=== PATIENT | female | born 1995 | race Caucasian/White ===

== ENCOUNTER 2017-02-10 22:26 | Emergency (ER) | payer OTHER ==
[2017-02-10 23:10] VITALS: O2SAT 98
--- NOTE | 2017-02-10 23:49 | ED PDOC ---
Arrival/HPI <Leopoldo Tellez - Last Filed: 02/11/17 00:15> - General Historian: Patient <Alyssia Em - Last Filed: 02/11/17 06:13> - General Chief Complaint: Abdominal Pain Time Seen by Provider: 02/10/17 23:24 - History of Present Illness Narrative History of Present Illness (Text): 02/10/17 23:44 Patient is a 21 year old with pmh of asthma and migraines presenting with lower abdominal pain. Patient states the abdominal pain started about 1-2 hrs prior to presenting. Patient states she was engaged in sexual activity, and during the act, she felt a sharp abdominal pain. Patient states prior to this she was already having abdominal pain, however the sex made it worst. patient states she has been having lower quadrant abdominal pain for about 3 months now , on/off, have not seen an obgyn, and it usually resolves spontaneously. However today the pain si worst. Even movement exacerbates the pain. Patient admits to burning when she urinates ( new today). Denies fever, chills, n/v/d. LMP was 2 weeks ago, no h/o STis, uses condoms, denies vaginal bleeding, denies odor, denies vaginal discharge. Patient is also complaining of burning sensation in b/l eye, R worst than L. ( Alyssia Em) Past Medical History - Provider Review Nursing Documentation Reviewed: Yes - Travel History Have you recently traveled outside [place] w/in the past 3 mons?: No - Infectious Disease Hx of Infectious Diseases: None - Tetanus Immunization Tetanus Immunization: Unknown - Cardiac Hx Cardiac Disorders: No - Pulmonary Hx Respiratory Disorders: Yes Hx Asthma: Yes - Neurological Hx Neurological Disorder: No - HEENT Hx HEENT Disorder: No - Renal Hx Renal Disorder: No - Endocrine/Metabolic Hx Endocrine Disorders: No - Hematological/Oncological Hx Blood Disorders: No - Integumentary Hx Dermatological Disorder: No - Musculoskeletal/Rheumatological Hx Musculoskeletal Disorders: No - Gastrointestinal Hx Gastrointestinal Disorders: No - Genitourinary/Gynecological Hx Genitourinary Disorders: No - Psychiatric Hx Psychophysiologic Disorder: No Hx Substance Use: No <Alyssia Em - Last Filed: 02/11/17 06:13> Family/Social History - Physician Review Nursing Documentation Reviewed: Yes Family/Social History: No Known Family HX Smoking Status: Light Smoker < 10 Cigarettes Daily Hx Alcohol Use: Yes Frequency of alcohol use: Socially Hx Substance Use: No <OmegaAlyssia montoya - Last Filed: 02/11/17 06:13> Allergies/Home Meds <Rosalinda,Leopoldo - Last Filed: 02/11/17 00:15> <TanyatripAlyssia montoya - Last Filed: 02/11/17 06:13> Allergies/Adverse Reactions: Allergies No Known Allergies Allergy (Verified 02/10/17 23:10) Home Medications: Home Meds Medication Instructions Recorded Confirmed Albuterol HFA [Ventolin HFA 90 2 puff IH PRN PRN 02/10/17 02/10/17 mcg/actuation (8 g)] Review of Systems - Review of Systems Constitutional: Normal Eyes: Eye Pain (bilateral.) ENT: Normal Respiratory: Normal Cardiovascular: Normal Gastrointestinal: Abdominal Pain. absent: Stool Changes, Constipation, Diarrhea , Nausea, Vomiting, Appetite Changes Genitourinary Female: Dysuria. absent: Hematuria, Vaginal Bleeding, Vaginal Discharge Musculoskeletal: Normal Skin: Normal Neurological: Normal Endocrine: Normal Hemo/Lymphatic: Normal Psychiatric: Normal <TanyatripAlyssia montoya - Last Filed: 02/11/17 06:13> Physical Exam Vital Signs Reviewed: Yes Temperature: Afebrile Blood Pressure: Normal Pulse: Regular Respiratory Rate: Normal Appearance: Positive for: Non-Toxic, Ill-Appearing, Uncomfortable Pain Distress: Severe Mental Status: Positive for: Alert and Oriented X 3 - Systems Exam Head: Present: Atraumatic, Normocephalic Pupils: Present: PERRL Extroacular Muscles: Present: EOMI Conjunctiva: Present: Other (teary eye) Mouth: Present: Dry Neck: Present: Normal Range of Motion Respiratory/Chest: Present: Clear to Auscultation, Good Air Exchange. No: Respiratory Distress, Accessory Muscle Use, Wheezes, Rales, Retracting, Rhonchi , Tachypneic Cardiovascular: Present: Regular Rate and Rhythm, Normal S1, S2. No: Murmurs Abdomen: Present: Tenderness (b/l lower quadrant abdominal pain ), Normal Bowel Sounds, Guarding. No: Distention, Peritoneal Signs, Rebound Genitourinary/Pelvic Exam: Present: Normal External Genitalia, Adenexal Tenderness, Cervical Motion Tendernes. No: Vaginal Discharge, Vaginal Bleeding , Vaginal Lesions, Adenexal Mass, Odor Back: Present: Normal Inspection. No: CVA Tenderness Upper Extremity: Present: Normal Inspection. No: Edema Lower Extremity: Present: Normal Inspection. No: Edema Neurological: Present: GCS=15 Skin: Present: Warm, Dry, Normal Color. No: Rashes Psychiatric: Present: Alert, Oriented x 3, Normal Insight, Normal Concentration <Alyssia Em - Last Filed: 02/11/17 06:13> Vital Signs Temp Pulse Resp BP Pulse Ox 02/11/17 02:15 97.6 F 79 18 106/75 98 02/10/17 23:10 99.2 F 83 20 114/72 98 Medical Decision Making <Leopoldo Tellez - Last Filed: 02/11/17 00:15> Re-evaluation Time: 04:45 Reassessment Condition: Re-examined, Improved - Lab Interpretations I have reviewed the lab results: Yes Interpretation: All labs normal - RAD Interpretation Polisher Hand: Radiologist <Alyssia Em - Last Filed: 02/11/17 06:13> ED Course and Treatment: Impression: Pt seen and evaluated with neuropsychology medical consultant. Pt, whose past medical history includes asthma and migraines, presented for lower abdominal pain for 1-2 hours. Aware and agree with HPI, clinical findings, plan, and management. Plan: -- Labs -- Urinalysis -- IV fluids -- Toradol -- Reassess and disposition (Leopoldo Tellez) 02/11/17 00:00 Patient is a 21 year old with pmh of asthma and migraines presenting with lower abdominal pain which started 1-2 hours ago with burning with urination. Differentials: UTI, pyelonephritis, STi, PID Plan: will obtain cbc, cmp, ua test and ucx. will give NS bolus 02/11/17 05:06 Cervical motion tenderness on pelvic exam, will add GC/CT, will give zithromax 1000 mg po stat, and Rocephin 250 mg IM stat. 02/11/17 06:06 (Alyssia Em) - Lab Interpretations Lab Results: 02/11/17 00:02 02/11/17 00:02 Lab Results 02/11/17 00:02: Sodium 138, Potassium 3.6, Chloride 104, Carbon Dioxide 23, Anion Gap 15, BUN 13, Creatinine 0.6, Est GFR ( Amer) > 60, Est GFR (Non- Af Amer) > 60, Random Glucose 91, Calcium 9.4, Total Bilirubin 0.3, AST 36, ALT 27, Alkaline Phosphatase 56, Total Protein 8.0, Albumin 4.6, Globulin 3.4, Albumin/Globulin Ratio 1.4 02/11/17 00:02: WBC 10.9, RBC 4.87, Hgb 12.4, Hct 36.7, MCV 75.4 L, MCH 25.5, MCHC 33.8, RDW 13.5, Plt Count 246, MPV 11.3 H, Gran % 72.2 H, Lymph % (Auto) 20.6 L, [place] % (Auto) 6.4 H, Eos % (Auto) 0.6 L, Baso % (Auto) 0.2, Gran # 7.86 H, Lymph # 2.2, [place] # 0.7 H, Eos # 0.1, Baso # 0.02 02/10/17 23:43: Urine Color Yellow, Urine Appearance Clear, Urine pH 6.0, Ur Specific [place] >= 1.030, Urine Protein Trace H, Urine Glucose (UA) Negative, Urine Ketones 15 H, Urine Blood Small H, Urine Nitrate Negative, Urine Bilirubin Negative, Urine Urobilinogen 0.2, Ur Leukocyte Esterase Negative, Urine RBC 2 - 5, Urine WBC 5 - 10, Ur Epithelial Cells 1 - 3, Urine Bacteria Few - RAD Interpretation Narrative RAD Interpretations (Text): 02/11/17 05:31 CT abdomen and pelvis: FINDINGS: Asymmetric breast tissue on the right likely secondary to positioning. The spleen is prominent. The liver is normal. The pancreas is normal. No gallstones. No hydronephrosis or perinephric stranding. Air in urinary bladder. The bowel appears normal. A normal appendix is identified coronal images 44 through 48. There is a 2 x 3 cm right ovarian cyst. Free fluid is present within the pelvis. Endometrial fluid is noted. Small lymph nodes are noted in the groins. There is a small umbilical fat hernia. IMPRESSION: Right ovarian cyst with moderate amount of adjacent free fluid. Air in the urinary bladder without evidence of [place] placement.Recommend correlation with urinalysis to exclude infectious/inflammatory process. Thank you for allowing us to participate in the care of your patient. Dictated and Authenticated by: Krissy Mabry MD 02/11/2017 3:30 AM Eastern Time ([place] & [place]) 02/11/17 06:07 (Alyssia Em) Radiology Orders: 02/11/17 01:08 ABD & PELVIS IV CONTRAST ONLY [CT] Stat - Medication Orders Current Medication Orders: Discontinued Medications Artificial Tears (Refresh Opth Soln) 0.3 ml OP STAT STA Stop: 02/11/17 00:01 Last Admin: 02/11/17 00:27 Dose: 0.3 ml Azithromycin (Zithromax) 1,000 mg PO STAT STA PRN Reason: Protocol Stop: 02/11/17 05:04 Last Admin: 02/11/17 05:28 Dose: 1,000 mg Ceftriaxone Sodium (Rocephin) 250 mg IM STAT STA PRN Reason: Protocol Stop: 02/11/17 05:04 Last Admin: 02/11/17 05:45 Dose: Not Given Non-Admin Reason: Patient Refused Sodium Chloride (Sodium Chloride 0.9%) 1,000 mls @ 999 mls/hr IV .Q1H1M STA Stop: 02/11/17 00:54 Last Admin: 02/11/17 00:28 Dose: 999 mls/hr Iohexol (Omnipaque 350 100 Ml) Confirm Administered Dose 350 mg .ROUTE .STK-MED ONE Stop: 02/11/17 02:14 Ketorolac Tromethamine (Toradol) 30 mg IVP STAT STA Stop: 02/11/17 00:06 Last Admin: 02/11/17 00:27 Dose: 30 mg Morphine Sulfate (Morphine) 2 mg IVP STAT STA Stop: 02/11/17 04:03 Last Admin: 02/11/17 05:29 Dose: 2 mg - PA / [facility]ORTER / Resident Statement [facility] has reviewed & agrees with the documentation as recorded. [facility] has examined the patient and agrees with the treatment plan. <Leopoldo Tellez - Last Filed: 02/11/17 00:15> Disposition/Present on Arrival <Leopoldo Tellez - Last Filed: 02/11/17 00:15> - Present on Arrival Any Indicators Present on Arrival: No History of DVT/PE: No History of Uncontrolled Diabetes: No Urinary Catheter: No History of Decub. Ulcer: No History Surgical Site Infection Following: None - Disposition Have Diagnosis and Disposition been Completed?: Yes Disposition Time: 06:05 Patient Plan: Discharge <Alyssia Em - Last Filed: 02/11/17 06:13> - Disposition Diagnosis: PID (acute pelvic inflammatory disease), Ovarian cyst Disposition: HOME/ ROUTINE Patient Problems: Current Active Problems Problem Status Onset PID (acute pelvic inflammatory disease) Acute Ovarian cyst Acute Condition: STABLE Discharge Instructions (ExitCare): Pelvic Inflammatory Disease (ED), Ovarian Cyst (ED) Additional Instructions: Please follow up with your [facility] as outpatient. Can take naproxen twice a day as needed for pain. Go to the nearest Emergency department you experience chest pain, fever or chest pain. Prescriptions: Naproxen 500 mg PO BID PRN #20 tab PRN Reason: Pain, Moderate (4-7) [facility] - Follow up with primary
[2017-02-10] MEDS ORDERED: Sodium Chloride 0.9% 1,000 ML IV STA (23:54)
[2017-02-11] MEDS ORDERED: Lubricant Eye Drops UD OP STA
[2017-02-11 00:14] LABS: ADD MANUAL DIFF? NO
[2017-02-11 00:25] LABS: BASO # 0.02 K/mm3 (0.0-2.0); BASO % 0.2 % (0.0-3.0); EOS # 0.1 (0.0-0.7); EOS % 0.6 % (1.5-5.0); GRAN # 7.86 (1.4-6.5); GRAN % 72.2 % (50.0-68.0); HEMATOCRIT 36.7 % (36.0-48.0); LYMPH # 2.2 (1.2-3.4); LYMPH % 20.6 % (22.0-35.0); MEAN CELL VOLUME 75.4 fL (80.0-105.0); MEAN CORPUSCULAR HEMOGLOBIN 25.5 pg (25.0-35.0); MEAN CORPUSCULAR HGB CONC 33.8 g/dl (31.0-37.0); MEAN PLATELET VOLUME 11.3 fl (7.0-11.0); MONO # 0.7 (0.1-0.6); MONO % 6.4 % (1.0-6.0); PLATELET COUNT 246 10^3/uL (120.0-450.0); RED CELL DISTRIBUTION WIDTH 13.5 % (11.5-14.5); WHITE BLOOD COUNT 10.9 10^3/ul (4.5-11.0)
[2017-02-11 00:51] LABS: ALB/GLOB RATIO 1.4 (1.1-1.8); ALKALINE PHOSPHATASE 56 U/L (38-133); ALT/SGPT 27 U/L (7-56); AST/SGOT 36 U/L (15-39); BILIRUBIN,TOTAL 0.3 mg/dL (0.2-1.3); BLOOD UREA NITROGEN 13 mg/dL (7-21); CALCIUM 9.4 mg/dL (8.4-10.5); CARBON DIOXIDE 23 mmol/L (21-33); CHLORIDE 104 mmol/L (98-107); GFR AFRICAN-AMERICAN > 60; GLUCOSE,RANDOM 91 mg/dL (70-110); POTASSIUM 3.6 mmol/L (3.6-5.0); SODIUM 138 mmol/L (132-148)
[2017-02-11 00:56] LABS: URINE BILIRUBIN NEGATIVE (NEGATIVE); URINE BLOOD SMALL (NEGATIVE); URINE GLUCOSE (UA) NEGATIVE (NEGATIVE); URINE KETONE 15 mg/dL (NEGATIVE); URINE LEUKOCYTE ESTERASE NEGATIVE Leu/uL (NEGATIVE); URINE PROTEIN TRACE mg/dL (<30 mg/dL); URINE UROBILINOGEN 0.2 E.U./dL (<1 E.U./dL)
[2017-02-11 01:02] LABS: URINE APPEARANCE CLEAR (CLEAR); URINE COLOR YELLOW (YELLOW)
[2017-02-11 01:09] LABS: URINE BACTERIA FEW (NEG)
[2017-02-11] MEDS ORDERED: Iohexol 350 MG/100 ML VIAL ONE (02:13)
[2017-02-11 02:20] VITALS: RESP 18; TEMP 97.6
--- NOTE | 2017-02-11 03:30 | CT ---
EXAM: CT Abdomen and Pelvis With Intravenous Contrast CLINICAL HISTORY: 21 years old, female; Pain; Abdominal pain; Generalized; Additional info: Lower abdominal pain TECHNIQUE: Axial computed tomography images of the abdomen and pelvis with intravenous contrast. This CT exam was performed using one or more of the following dose reduction techniques: automated exposure control, adjustment of the mA and/or kV according to patient size, and/or use of iterative reconstruction technique. Coronal and sagittal reformatted images were created and reviewed. CONTRAST: 96 mL of OMNI 350 administered intravenously. EXAM DATE/TIME: 02/11/2017 1:08 AM COMPARISON: No relevant prior studies available. FINDINGS: Asymmetric breast tissue on the right likely secondary to positioning. The spleen is prominent. The liver is normal. The pancreas is normal. No gallstones. No hydronephrosis or perinephric stranding. Air in urinary bladder. The bowel appears normal. A normal appendix is identified coronal images 44 through 48. There is a 2 x 3 cm right ovarian cyst. Free fluid is present within the pelvis. Endometrial fluid is noted. Small lymph nodes are noted in the groins. There is a small umbilical fat hernia. IMPRESSION: Right ovarian cyst with moderate amount of adjacent free fluid. Air in the urinary bladder without evidence of [place] placement.Recommend correlation with urinalysis to exclude infectious/inflammatory process.
[2017-02-11] MEDS ORDERED: Morphine 2 mg/ml ISec IVP STA (04:02)
[2017-02-11] MEDS: cefTRIAXone (Rocephin) 250 mg Inj IM STA ×2 (05:28→05:45)
[2017-02-11 06:42] VITALS: BP 110/70; PULSE 70
== END 2017-02-11 06:43 | disposition home or self-care (01) ==
LOC: MERGE 22:26 → ED 22:26
DX: N73.9 Female pelvic inflammatory disease, unspecified (principal); N83.201 Unspecified ovarian cyst, right side
CPT/HCPCS: 74177; 80053; 81001; 85025; 96374; 96375; 99283; J1885; J2270; J7040; Q9967